=== PATIENT | male | born 1935 | race African-American/Black ===

== ENCOUNTER 2017-09-25 12:00 | Emergency (ER) | payer MEDICARE ==
[~2017-09-25] VITALS: Ht 167.6 cm; Wt 60.0 kg
[2017-09-25] MEDS ORDERED: KETOROLAC 60MG/2ML VIAL IM ONE (13:45)
[2017-09-25 13:53] VITALS: BP 104/84
== END 2017-09-25 14:38 | disposition home or self-care (01) ==
LOC: ER 13:18
DX: G89.29 Other chronic pain (principal); M54.5 Low back pain; M48.00 Spinal stenosis, site unspecified
CPT/HCPCS: 96372; 99283; J1885